=== PATIENT | female | born 1960 | race Caucasian/White ===

== ENCOUNTER 2018-01-07 20:36 | Inpatient (IN) | payer MEDICAID, OTHER ==
[2018-01-07] MEDS: LIDOCAINE/MYLANTA 40 ML BTL PO (21:24)
[2018-01-07] MEDS: ONDANSETRON 4 MG INJ IV (21:24)
[2018-01-07] MEDS: FAMOTIDINE 20 MG INJ IV (21:24)
[2018-01-07] MEDS: morphine 4 MG/ML VIAL IV (21:25)
[2018-01-07] MEDS: SOD CHLORIDE 0.9% 1,000 ML IV (21:25)
[2018-01-07 21:48] LABS: ADD MAN DIFF? NO
[2018-01-07 21:50] LABS: BASOPHILS % 0.2 % (0.0-2.0); HEMATOCRIT 36.7 % (37.0-47.0); HEMOGLOBIN 12.2 g/dl (12.0-16.0); LYMPHOCYTES # 0.9 10^3/ul (0.8-2.9); LYMPHOCYTES % 8.7 % (15.0-51.0); MEAN CORPUSCULAR HEMOGLOBIN 27.1 pg (29.0-33.0); MEAN CORPUSCULAR HGB CONC 33.2 g/dl (32.0-37.0); MEAN CORPUSCULAR VOLUME 81.6 fl (82.0-101.0); MONOCYTE # 0.8 10^3/ul (0.3-0.9); MONOCYTES % 7.7 % (0.0-11.0); NEUTROPHIL # 8.9 10^3/ul (1.6-7.5); NEUTROPHILS % 83.1 % (39.0-77.0); PLATELET COUNT 317 10^3/UL (140-415); RED CELL DISTRIBUTION WIDTH 14.6 % (11.5-14.5)
[2018-01-07 21:50] LABS: WHITE BLOOD COUNT 10.7 10^3/ul (4.8-10.8)
[2018-01-07 21:57] LABS: ADD UMIC NO; UR ASCORBIC ACID NEGATIVE (NEGATIVE); UR BILIRUBIN (Dip) NEGATIVE (NEGATIVE); UR BLOOD (Dip) NEGATIVE (NEGATIVE); UR CLARITY CLEAR (CLEAR); UR COLOR STRAW (YELLOW); UR GLUCOSE (Dip) NEGATIVE (NEGATIVE); UR KETONES (Dip) TRACE mg/dL (NEGATIVE); UR LEUKOCYTE ESTERASE (Dip) NEGATIVE Leu/ul (NEGATIVE); UR NITRITE (Dip) NEGATIVE (NEGATIVE); UR SPECIFIC GRAVITY (Dip) 1.006 (1.003-1.030); UR TOTAL PROTEIN (Dip) NEGATIVE (NEGATIVE); UR UROBILINOGEN (Dip) NEGATIVE (NEGATIVE)
[2018-01-07 22:08] LABS: ALANINE AMINOTRANSFERASE 41 IU/L (13-69); ALBUMIN 4.3 g/dl (3.3-4.9); ALKALINE PHOSPHATASE 109 IU/L (42-121); ANION GAP 13 (8-16); ASPARTATE AMINO TRANSFERASE 25 IU/L (15-46); BILIRUBIN,INDIRECT 0.9 mg/dl (0-1.1); BILIRUBIN,TOTAL 0.9 mg/dl (0.2-1.3); BLOOD UREA NITROGEN 15 mg/dl (7-20); CALCIUM 9.4 mg/dl (8.4-10.2); CARBON DIOXIDE 31 mmol/L (21-31); CHLORIDE 99 mmol/L (97-110); CREATININE 0.68 mg/dl (0.44-1.00); GLUCOSE 124 mg/dl (70-220); LIPASE 90 U/L (23-300); SODIUM 140 mmol/L (135-144); TOTAL PROTEIN 8.2 g/dl (6.1-8.1)
[2018-01-07 22:11] LABS: POTASSIUM 2.8 mmol/L (3.5-5.1)
[2018-01-07] MEDS: morphine 10 MG INJ IV (22:27)
[2018-01-07] MEDS: MAGNESIUM SULFATE 2 GM/50 ML 50 ML IVPB (22:28)
[2018-01-08] MEDS: POTASSIUM CHLORIDE 100 ML IVPB ×3 (00:53→05:17)
[2018-01-08] MEDS ORDERED: SOD CHLORIDE 0.9% 1,000 ML IV (00:54)
[2018-01-08] MEDS ORDERED: HYDROmorphONE 0.5 MG/0.5 ML SYG IV (01:00)
[2018-01-08] MEDS ORDERED: NACL 0.9% 3 ML SYG IV (01:00)
[2018-01-08] MEDS ORDERED: ONDANSETRON 4 MG INJ IV (01:00)
[2018-01-08] MEDS: HYDROmorphONE 0.5 MG/0.5 ML SYG IV ×4 (03:15→20:18)
[2018-01-08] MEDS: PIPER-TAZO 3.375 GM IV (PMX) 100 ML IVPB ×4 (03:17→17:59)
[2018-01-08] MEDS: NS + KCL 20 MEQ 1,000 ML IV ×3 (05:04→21:00)
[2018-01-08 06:28] LABS: ADD MAN DIFF? NO
[2018-01-08 06:33] LABS: BASOPHILS % 0.2 % (0.0-2.0); HEMATOCRIT 36.4 % (37.0-47.0); LYMPHOCYTES # 0.7 10^3/ul (0.8-2.9); LYMPHOCYTES % 4.1 % (15.0-51.0); MEAN CORPUSCULAR HEMOGLOBIN 27.1 pg (29.0-33.0); MEAN CORPUSCULAR VOLUME 82.2 fl (82.0-101.0); MONOCYTE # 1.2 10^3/ul (0.3-0.9); MONOCYTES % 7.4 % (0.0-11.0); NEUTROPHIL # 14.1 10^3/ul (1.6-7.5); NEUTROPHILS % 87.8 % (39.0-77.0); PLATELET COUNT 282 10^3/UL (140-415); RED BLOOD COUNT 4.43 10^6/ul (4.20-5.40); RED CELL DISTRIBUTION WIDTH 14.7 % (11.5-14.5)
[2018-01-08 06:41] LABS: HEMOGLOBIN A1C 5.5 % (0-5.9)
[2018-01-08 06:46] LABS: PROTIME 13.3 Sec (11.9-14.9)
[2018-01-08 06:48] LABS: PARTIAL THROMBOPLASTIN TIME 31.3 Sec (25.0-35.0)
[2018-01-08 06:57] LABS: ALANINE AMINOTRANSFERASE 40 IU/L (13-69); ALBUMIN/GLOBULIN RATIO 1.02; ALKALINE PHOSPHATASE 96 IU/L (42-121); ANION GAP 13 (8-16); ASPARTATE AMINO TRANSFERASE 25 IU/L (15-46); BILIRUBIN,INDIRECT 1.2 mg/dl (0-1.1); BILIRUBIN,TOTAL 1.2 mg/dl (0.2-1.3); BLOOD UREA NITROGEN 9 mg/dl (7-20); CARBON DIOXIDE 30 mmol/L (21-31); CHLORIDE 103 mmol/L (97-110); CREATININE 0.57 mg/dl (0.44-1.00); GLUCOSE 140 mg/dl (70-220); MAGNESIUM 2.4 mg/dl (1.7-2.5); POTASSIUM 3.4 mmol/L (3.5-5.1); SODIUM 143 mmol/L (135-144); TOTAL PROTEIN 7.9 g/dl (6.1-8.1)
[2018-01-08 07:22] LABS: THYROID STIMULATING HORMONE 0.128 MIU/L (0.465-4.680)
[2018-01-08] MEDS: POTASSIUM CHLORIDE (SR) 20 MEQ TAB PO (12:02)
[2018-01-08] MEDS: ACETAMINOPHEN 325 MG TAB PO (12:02)
[2018-01-09] MEDS: PIPER-TAZO 3.375 GM IV (PMX) 100 ML IVPB ×5 (00:55→23:53)
[2018-01-09] MEDS: NS + KCL 20 MEQ 1,000 ML IV ×3 (00:58→15:10)
[2018-01-09] MEDS: HYDROmorphONE 0.5 MG/0.5 ML SYG IV ×5 (02:07→20:46)
[2018-01-09] MEDS: ACETAMINOPHEN 325 MG TAB PO ×2 (02:08→16:50)
[2018-01-09 06:58] LABS: WHITE BLOOD COUNT 15.8 10^3/ul (4.8-10.8)
[2018-01-09 06:58] LABS: HEMATOCRIT 34.9 % (37.0-47.0); HEMOGLOBIN 11.1 g/dl (12.0-16.0); MEAN CORPUSCULAR HEMOGLOBIN 26.9 pg (29.0-33.0); MEAN CORPUSCULAR HGB CONC 31.8 g/dl (32.0-37.0); MEAN CORPUSCULAR VOLUME 84.7 fl (82.0-101.0); MEAN PLATELET VOLUME 10.3 fl (7.4-10.4); PLATELET COUNT 263 10^3/UL (140-415); RED BLOOD COUNT 4.12 10^6/ul (4.20-5.40); RED CELL DISTRIBUTION WIDTH 15.3 % (11.5-14.5)
[2018-01-09 07:09] LABS: ADD MAN DIFF? YES; POSITIVE DIFF @See below
[2018-01-09 07:24] LABS: ALANINE AMINOTRANSFERASE 55 IU/L (13-69); ALBUMIN 3.1 g/dl (3.3-4.9); ALBUMIN/GLOBULIN RATIO 0.96; ALKALINE PHOSPHATASE 100 IU/L (42-121); ANION GAP 13 (8-16); ASPARTATE AMINO TRANSFERASE 38 IU/L (15-46); BILIRUBIN,INDIRECT 0.9 mg/dl (0-1.1); BILIRUBIN,TOTAL 0.9 mg/dl (0.2-1.3); BLOOD UREA NITROGEN 12 mg/dl (7-20); CALCIUM 8.8 mg/dl (8.4-10.2); CARBON DIOXIDE 25 mmol/L (21-31); CHLORIDE 112 mmol/L (97-110); CREATININE 0.59 mg/dl (0.44-1.00); GLUCOSE 98 mg/dl (70-220); MAGNESIUM 2.5 mg/dl (1.7-2.5); POTASSIUM 3.9 mmol/L (3.5-5.1); SODIUM 146 mmol/L (135-144); TOTAL PROTEIN 6.3 g/dl (6.1-8.1)
[2018-01-09 08:22] LABS: ANISOCYTOSIS 1+ (0-0); BAND NEUTROPHILS #M 2.5 10^3/ul (0.0-0.6); BAND NEUTROPHILS % (M) 16 % (0-4); LYMPHOCYTES #M 0.7 10^3/ul (0.8-2.9); LYMPHOCYTES % (M) 5 % (15-51); MICROCYTOSIS 1+ (0-0); MONOCYTE #M 0.4 10^3/ul (0.3-0.9); MONOCYTES % (M) 3 % (0-11); PLATELET ESTIMATE NORMAL; POIKILOCYTOSIS 1+ (0-0); POLYCHROMASIA 3+ (0-0); SEG NEUT #M 12.4 10^3/ul (1.6-7.5); SEGMENTED NEUTROPHILS (M) % 76 % (39-77); SMUDGE%M 3 % (0-0)
[2018-01-09] MEDS ORDERED: morphine 2 MG INJ IV (11:30)
[2018-01-09] MEDS ORDERED: HYDROmorphONE 0.5 MG/0.5 ML SYG IV (12:00)
[2018-01-09 16:17] LABS: AMYLASE 43 U/L (11-123)
[2018-01-09 16:17] LABS: LIPASE 32 U/L (23-300)
[2018-01-09] MEDS: FAMOTIDINE 20 MG TAB PO (20:42)
[2018-01-10] MEDS: HYDROmorphONE 0.5 MG/0.5 ML SYG IV ×3 (01:41→18:47)
[2018-01-10] MEDS: NS + KCL 20 MEQ 1,000 ML IV ×3 (01:41→22:42)
[2018-01-10] MEDS: PIPER-TAZO 3.375 GM IV (PMX) 100 ML IVPB ×3 (05:46→17:56)
[2018-01-10 07:05] LABS: ADD MAN DIFF? NO
[2018-01-10 07:07] LABS: WHITE BLOOD COUNT 12.5 10^3/ul (4.8-10.8)
[2018-01-10 07:07] LABS: BASOPHILS % 0.2 % (0.0-2.0); HEMATOCRIT 32.3 % (37.0-47.0); HEMOGLOBIN 10.2 g/dl (12.0-16.0); LYMPHOCYTES # 0.7 10^3/ul (0.8-2.9); LYMPHOCYTES % 5.5 % (15.0-51.0); MEAN CORPUSCULAR HEMOGLOBIN 26.8 pg (29.0-33.0); MEAN CORPUSCULAR HGB CONC 31.6 g/dl (32.0-37.0); MEAN PLATELET VOLUME 10.3 fl (7.4-10.4); MONOCYTE # 0.7 10^3/ul (0.3-0.9); MONOCYTES % 5.8 % (0.0-11.0); NEUTROPHILS % 87.9 % (39.0-77.0); PLATELET COUNT 268 10^3/UL (140-415); RED CELL DISTRIBUTION WIDTH 15.2 % (11.5-14.5)
[2018-01-10 07:24] LABS: ANION GAP 14 (8-16); BLOOD UREA NITROGEN 11 mg/dl (7-20); CALCIUM 9.1 mg/dl (8.4-10.2); CARBON DIOXIDE 23 mmol/L (21-31); CHLORIDE 113 mmol/L (97-110); CHOL/HDL RATIO 3.9 RATIO; CHOLESTEROL 179 mg/dl (100-200); CREATININE 0.54 mg/dl (0.44-1.00); GLUCOSE 101 mg/dl (70-220); HDL CHOLESTEROL 45 mg/dl (37-92); LDL CHOLESTEROL,CALCULATED 108 mg/dl; MAGNESIUM 2.2 mg/dl (1.7-2.5); POTASSIUM 3.4 mmol/L (3.5-5.1); SODIUM 147 mmol/L (135-144); TRIGLYCERIDES 132 mg/dl (0-149)
[2018-01-10] MEDS: SODIUM CHLORIDE 0.45% 500 ML BAG IV* (09:30)
[2018-01-10] MEDS ORDERED: IOHEXOL 300MG/ML 30 ML BTL (09:35)
[2018-01-10] MEDS: SODIUM CHLORIDE 0.45% 1L BAG IV* (09:58)
[2018-01-10] MEDS ORDERED: EPHEDrine SULFATE 50 MG/5 ML SYG IV (10:00)
[2018-01-10] MEDS ORDERED: MEPERIDINE 25 MG INJ IV (10:00)
[2018-01-10] MEDS ORDERED: METOCLOPRAMIDE 10 MG INJ IV (10:00)
[2018-01-10] MEDS ORDERED: MIDAZOLAM 1 MG/ML 2 ML INJ IV (10:00)
[2018-01-10] MEDS ORDERED: FENTAnyl 50 MCG/ML VIAL IV ×3 (10:00)
[2018-01-10] MEDS ORDERED: LABETALOL HCL 20MG INJ IV (10:00)
[2018-01-10] MEDS ORDERED: DIPHENHYDRAMINE 50 MG INJ IV (10:00)
[2018-01-10] MEDS ORDERED: HYDROmorphONE (0.2 MG/ML) 10ML SYG IV ×2 (10:00)
[2018-01-10] MEDS ORDERED: OXYCODONE/ACETAMINOPHEN (5/325) TAB PO ×2 (10:00)
[2018-01-10] MEDS ORDERED: hydrALAzine 20 MG INJ IV (10:00)
[2018-01-10] MEDS ORDERED: ONDANSETRON 4 MG INJ IV (10:00)
[2018-01-10] MEDS: BUPIVACAINE 0.25%/EPI (SDV) 30 ML INJ INJ (10:16)
[2018-01-10] MEDS: LIDOCAINE 1% (MPF) 30 ML INJ (10:16)
[2018-01-10] MEDS ORDERED: ROCURONIUM 50 MG INJ (10:54)
[2018-01-10] MEDS ORDERED: PROPOFOL 20 ML (10:54)
[2018-01-10] MEDS ORDERED: LIDOCAINE 2% (SDV) 5 ML INJ (10:54)
[2018-01-10] MEDS ORDERED: SUCCINYLCHOLINE CHLORIDE 100 MG/5 ML SYG IV (10:54)
[2018-01-10] MEDS ORDERED: NEOSTIGMINE 3 MG/3 ML SYRINGE (10:54)
[2018-01-10] MEDS ORDERED: MEPERIDINE 100 MG INJ (10:54)
[2018-01-10] MEDS ORDERED: GLYCOPYRROLATE 0.4 MG INJ ×2 (10:54→12:04)
[2018-01-10] MEDS ORDERED: ONDANSETRON 4 MG INJ (12:04)
[2018-01-10] MEDS ORDERED: METOCLOPRAMIDE 10 MG INJ (12:05)
[2018-01-10] MEDS: HYDROmorphONE (0.2 MG/ML) 10ML SYG IV (13:02)
[2018-01-10] MEDS: POTASSIUM CHLORIDE 100 ML IVPB (15:04)
[2018-01-10] MEDS: FAMOTIDINE 20 MG TAB PO (20:49)
[2018-01-10] MEDS: HYDROCODONE/APAP (5/325) TAB PO (22:53)
[2018-01-11] MEDS: PIPER-TAZO 3.375 GM IV (PMX) 100 ML IVPB ×4 (00:10→17:30)
[2018-01-11 06:07] LABS: ADD MAN DIFF? NO
[2018-01-11] MEDS: HYDROCODONE/APAP (5/325) TAB PO ×3 (06:08→20:02)
[2018-01-11 06:09] LABS: WHITE BLOOD COUNT 9.4 10^3/ul (4.8-10.8)
[2018-01-11 06:09] LABS: BASOPHILS % 0.3 % (0.0-2.0); EOSINOPHILS % 0.1 % (0.0-7.0); HEMATOCRIT 28.5 % (37.0-47.0); HEMOGLOBIN 9.2 g/dl (12.0-16.0); LYMPHOCYTES # 1.2 10^3/ul (0.8-2.9); LYMPHOCYTES % 12.6 % (15.0-51.0); MEAN CORPUSCULAR HEMOGLOBIN 27.3 pg (29.0-33.0); MEAN CORPUSCULAR HGB CONC 32.3 g/dl (32.0-37.0); MEAN CORPUSCULAR VOLUME 84.6 fl (82.0-101.0); MEAN PLATELET VOLUME 10.7 fl (7.4-10.4); MONOCYTE # 0.7 10^3/ul (0.3-0.9); MONOCYTES % 7.9 % (0.0-11.0); NEUTROPHIL # 7.4 10^3/ul (1.6-7.5); NEUTROPHILS % 78.7 % (39.0-77.0); PLATELET COUNT 267 10^3/UL (140-415); RED BLOOD COUNT 3.37 10^6/ul (4.20-5.40)
[2018-01-11 06:28] LABS: ANION GAP 12 (8-16); BLOOD UREA NITROGEN 10 mg/dl (7-20); CALCIUM 8.1 mg/dl (8.4-10.2); CARBON DIOXIDE 25 mmol/L (21-31); CHLORIDE 111 mmol/L (97-110); CREATININE 0.52 mg/dl (0.44-1.00); GLUCOSE 108 mg/dl (70-220); MAGNESIUM 2.1 mg/dl (1.7-2.5); POTASSIUM 3.4 mmol/L (3.5-5.1); SODIUM 145 mmol/L (135-144)
[2018-01-11] MEDS: NS + KCL 20 MEQ 1,000 ML IV ×3 (08:47→22:37)
[2018-01-11] MEDS: POTASSIUM CHLORIDE (SR) 20 MEQ TAB PO (11:52)
[2018-01-11] MEDS: MAGNESIUM HYDROXIDE 30ML CUP PO (11:52)
[2018-01-11] MEDS: DOCUSATE SODIUM 100 MG CAP PO (15:38)
[2018-01-11] MEDS: FAMOTIDINE 20 MG TAB PO (20:44)
[2018-01-12] MEDS: PIPER-TAZO 3.375 GM IV (PMX) 100 ML IVPB ×3 (00:42→12:00)
[2018-01-12] MEDS: HYDROCODONE/APAP (5/325) TAB PO (05:31)
[2018-01-12 05:49] LABS: ADD MAN DIFF? NO
[2018-01-12 05:50] LABS: BASOPHILS % 0.3 % (0.0-2.0); EOSINOPHILS # 0.1 10^3/ul (0.0-0.5); EOSINOPHILS % 1.6 % (0.0-7.0); LYMPHOCYTES # 1.4 10^3/ul (0.8-2.9); LYMPHOCYTES % 20.3 % (15.0-51.0); MEAN CORPUSCULAR HEMOGLOBIN 27.2 pg (29.0-33.0); MEAN CORPUSCULAR HGB CONC 32.1 g/dl (32.0-37.0); MEAN CORPUSCULAR VOLUME 84.6 fl (82.0-101.0); MEAN PLATELET VOLUME 10.1 fl (7.4-10.4); MONOCYTE # 0.4 10^3/ul (0.3-0.9); MONOCYTES % 6.4 % (0.0-11.0); NEUTROPHIL # 4.9 10^3/ul (1.6-7.5); NEUTROPHILS % 70.8 % (39.0-77.0); PLATELET COUNT 289 10^3/UL (140-415); RED BLOOD COUNT 3.31 10^6/ul (4.20-5.40); RED CELL DISTRIBUTION WIDTH 14.8 % (11.5-14.5)
[2018-01-12 05:50] LABS: WHITE BLOOD COUNT 6.9 10^3/ul (4.8-10.8)
[2018-01-12 06:18] LABS: ANION GAP 8 (8-16); BLOOD UREA NITROGEN 7 mg/dl (7-20); CALCIUM 8.3 mg/dl (8.4-10.2); CARBON DIOXIDE 31 mmol/L (21-31); CHLORIDE 109 mmol/L (97-110); CREATININE 0.51 mg/dl (0.44-1.00); GLUCOSE 113 mg/dl (70-220); MAGNESIUM 2.1 mg/dl (1.7-2.5); POTASSIUM 4.3 mmol/L (3.5-5.1); SODIUM 144 mmol/L (135-144)
[2018-01-12] MEDS: ACETAMINOPHEN 325 MG TAB PO (13:15)
[2018-01-12] MEDS: DIPHENHYDRAMINE 50 MG INJ IV (14:03)
[2018-01-12] MEDS: metroNIDAZOLE 500 MG/NS (PMX) 100 ML IVPB ×2 (14:03→22:49)
[2018-01-12] MEDS: FAMOTIDINE 20 MG TAB PO (21:00)
[2018-01-12] MEDS: DIPHENHYDRAMINE 25 MG CAP PO (21:00)
[2018-01-12] MEDS: CIPROFLOXACIN 400MG/D5W 200 ML IVPB (21:40)
[2018-01-12] MEDS: HYDROmorphONE 0.5 MG/0.5 ML SYG IV (23:13)
[2018-01-13] MEDS: metroNIDAZOLE 500 MG/NS (PMX) 100 ML IVPB ×3 (05:34→22:45)
[2018-01-13 06:58] LABS: FREE T4 (FREE THYROXINE) 1.57 ng/dl (0.64-1.79)
[2018-01-13 06:59] LABS: FREE T3 3.46 pg/ml (2.77-5.27)
[2018-01-13 07:13] LABS: THYROID STIMULATING HORMONE 0.803 MIU/L (0.465-4.680)
[2018-01-13] MEDS: DOCUSATE SODIUM 100 MG CAP PO (08:38)
[2018-01-13] MEDS: DIPHENHYDRAMINE 25 MG CAP PO ×3 (08:38→21:43)
[2018-01-13] MEDS: CIPROFLOXACIN 400MG/D5W 200 ML IVPB ×2 (08:38→21:43)
[2018-01-13] MEDS: ENOXAPARIN 40 MG/0.4 ML SYG SC (10:58)
[2018-01-13] MEDS: HYDROCODONE/APAP (5/325) TAB PO ×2 (12:01→18:54)
[2018-01-13] MEDS: FAMOTIDINE 20 MG TAB PO (21:43)
[2018-01-14] MEDS: metroNIDAZOLE 500 MG/NS (PMX) 100 ML IVPB ×2 (06:00→13:18)
[2018-01-14] MEDS: HYDROCODONE/APAP (5/325) TAB PO ×2 (06:07→18:21)
[2018-01-14 06:18] LABS: ADD MAN DIFF? NO
[2018-01-14 06:25] LABS: WHITE BLOOD COUNT 7.6 10^3/ul (4.8-10.8)
[2018-01-14 06:25] LABS: BASOPHILS % 0.4 % (0.0-2.0); EOSINOPHILS # 0.3 10^3/ul (0.0-0.5); EOSINOPHILS % 3.4 % (0.0-7.0); HEMATOCRIT 30.5 % (37.0-47.0); HEMOGLOBIN 9.9 g/dl (12.0-16.0); LYMPHOCYTES # 1.8 10^3/ul (0.8-2.9); MEAN CORPUSCULAR HEMOGLOBIN 26.6 pg (29.0-33.0); MEAN CORPUSCULAR HGB CONC 32.5 g/dl (32.0-37.0); MEAN PLATELET VOLUME 9.7 fl (7.4-10.4); MONOCYTE # 0.5 10^3/ul (0.3-0.9); NEUTROPHIL # 4.8 10^3/ul (1.6-7.5); PLATELET COUNT 486 10^3/UL (140-415); RED BLOOD COUNT 3.72 10^6/ul (4.20-5.40); RED CELL DISTRIBUTION WIDTH 14.4 % (11.5-14.5)
[2018-01-14 06:54] LABS: LIPASE 1276 U/L (23-300)
[2018-01-14 07:07] LABS: INR 1.09; PROTIME 14.3 Sec (11.9-14.9); PT RATIO 1.1
[2018-01-14 07:49] LABS: ALANINE AMINOTRANSFERASE 59 IU/L (13-69); ALBUMIN 3.1 g/dl (3.3-4.9); ALBUMIN/GLOBULIN RATIO 0.91; ALKALINE PHOSPHATASE 149 IU/L (42-121); ANION GAP 13 (8-16); ASPARTATE AMINO TRANSFERASE 32 IU/L (15-46); BILIRUBIN,INDIRECT 0.1 mg/dl (0-1.1); BILIRUBIN,TOTAL 0.1 mg/dl (0.2-1.3); BLOOD UREA NITROGEN 8 mg/dl (7-20); CALCIUM 8.8 mg/dl (8.4-10.2); CARBON DIOXIDE 31 mmol/L (21-31); CHLORIDE 105 mmol/L (97-110); CREATININE 0.52 mg/dl (0.44-1.00); GLUCOSE 94 mg/dl (70-220); MAGNESIUM 2.2 mg/dl (1.7-2.5); PHOSPHORUS 5.1 mg/dl (2.5-4.9); SODIUM 146 mmol/L (135-144); TOTAL PROTEIN 6.5 g/dl (6.1-8.1)
[2018-01-14 07:53] LABS: POTASSIUM 2.8 mmol/L (3.5-5.1)
[2018-01-14] MEDS ORDERED: POTASSIUM CHLORIDE 100 ML IVPB (08:30)
[2018-01-14] MEDS: POTASSIUM CHLORIDE 100 ML IVPB ×2 (09:30→13:18)
[2018-01-14] MEDS: CIPROFLOXACIN 400MG/D5W 200 ML IVPB (09:30)
[2018-01-14] MEDS: DIPHENHYDRAMINE 25 MG CAP PO ×3 (09:31→20:13)
[2018-01-14] MEDS: ENOXAPARIN 40 MG/0.4 ML SYG SC (09:39)
[2018-01-14] MEDS: CIPROFLOXACIN 500 MG TAB PO (18:21)
[2018-01-14] MEDS: FAMOTIDINE 20 MG TAB PO (20:13)
[2018-01-14] MEDS: metroNIDAZOLE 500 MG TAB PO (22:06)
[2018-01-15] MEDS: HYDROCODONE/APAP (5/325) TAB PO (02:11)
[2018-01-15] MEDS: CIPROFLOXACIN 500 MG TAB PO (05:57)
[2018-01-15] MEDS: metroNIDAZOLE 500 MG TAB PO ×2 (05:57→14:41)
[2018-01-15] MEDS: DIPHENHYDRAMINE 25 MG CAP PO ×2 (08:26→12:44)
[2018-01-15] MEDS: ENOXAPARIN 40 MG/0.4 ML SYG SC (08:27)
[2018-01-15] MEDS: POTASSIUM CHLORIDE (SR) 20 MEQ TAB PO ×2 (10:52→12:44)
[2018-01-15] MEDS: ACETAMINOPHEN 325 MG TAB PO (14:42)
== END 2018-01-15 16:32 | disposition home health service (06) | DRG 417 ==
LOC: PP2 01-08 00:58 → E/R 20:36 → PP2 01-08 03:54
PROC: 0FT44ZZ Resection of Gallbladder, Percutaneous Endoscopic Approach (ICD-10-PCS; principal; 2018-01-10 10:46)
PROC: 0FB04ZX Excision of Liver, Percutaneous Endoscopic Approach, Diagnostic (ICD-10-PCS; 2018-01-10 10:46)
DX: K80.00 Calculus of gallbladder with acute cholecystitis without obstruction (principal); K82.2 Perforation of gallbladder; K85.90 Acute pancreatitis without necrosis or infection, unspecified; A41.9 Sepsis, unspecified organism; K82.1 Hydrops of gallbladder; E87.0 Hyperosmolality and hypernatremia; K56.7 Ileus, unspecified; D50.9 Iron deficiency anemia, unspecified; I10 Essential (primary) hypertension; E78.5 Hyperlipidemia, unspecified; M19.011 Primary osteoarthritis, right shoulder; E88.09 Other disorders of plasma-protein metabolism, not elsewhere classified; E66.3 Overweight; Z68.29 Body mass index [BMI] 29.0-29.9, adult; E86.0 Dehydration; L27.0 Generalized skin eruption due to drugs and medicaments taken internally; T36.0X5A Adverse effect of penicillins, initial encounter; Y92.239 Unspecified place in hospital as the place of occurrence of the external cause
CPT/HCPCS: 36415; 71045; 73030-RT; 74018; 74176; 74181; 76705; 80048; 80053; 80061; 81003; 82150; 83036; 83690; 83735; 84100; 84439; 84443; 84481; 85025; 85610; 85730; 88304; 88307; 88313; 93005; 96374; 96375; 96376; 99285-25